=== PATIENT | female | born 1955 | race African-American/Black ===

== ENCOUNTER 2020-01-08 08:04 | Day surgery (SDC) | payer OTHER ==
[2020-01-05 17:40] VITALS: BMI 31.1
[2020-01-05 18:01] LABS: Hemoglobin 14.1 g/dL (12.0-16.0); Mean Corpuscular HGB CONC 33.6 g/dL (32.0-36.0); Mean Corpuscular Hemoglobin 30.9 pg (27.0-31.0); Mean Corpuscular Volume 91.8 fL (78.0-98.0); Mean Platelet Volume 9.1 fL (7.4-10.4); Platelet Count 243 thou/uL (130-400); RBC Distribution Width 12.4 % (11.5-14.5); Red Blood Cell (RBC) Count 4.57 mill/uL (4.20-5.40)
[2020-01-06 16:51] LABS: SARS-CoV-2 MS2 Positive; SARS-CoV-2 N Gene Negative; SARS-CoV-2 S Gene Negative; SARS-CoV-2 orf1ab Negative
--- NOTE | 2020-01-08 08:12 | HP ---
ANTICIPATED DATE OF SURGERY: She is scheduled for surgery on January 07. HISTORY OF PRESENT ILLNESS: Ms. Swift is a 64-year-old female, who has had a history of postmenopausal bleeding for the past year and a half. She was originally evaluated at [facility] with a hysteroscopy D and C on September 2018, which had benign findings. She had a recurrence of the bleeding in July 2019 and transvaginal ultrasound showed 8 mm endometrial lining with benign polyp biopsy. Pap smears were also normal with negative HPV testing. She had been planning on proceeding with definitive surgical therapy, but due to the COVID outbreak, this had been postponed and prolonged and she now presented to my office desiring definitive surgical therapy. She was seen in my office on November 14. Endometrial biopsy again was performed, which was benign. She denies any current bleeding. No family history of uterine or ovarian cancer. PAST MEDICAL HISTORY: Medical problems include hypertensive disorder, hyperlipidemia, diabetes, anxiety, hypothyroidism. CURRENT MEDICATIONS: 1. Lisinopril 40 mg tablet daily. 2. Pravastatin 20 mg tablet daily. 3. Toprol-XL 100 mg tablet daily. ALLERGIES: SHE HAS NO KNOWN DRUG ALLERGIES. SOCIAL HISTORY: Nonsmoker. No excessive alcohol use. FAMILY HISTORY: Significant for colon cancer in her mother and stomach cancer. PAST SURGICAL HISTORY: She has had an endoscopy with EGD, colonoscopy, thyroidectomy, and biopsy of the breast which was benign. OBSTETRICAL HISTORY: A G2, P1, A1 with one spontaneous vaginal delivery. PHYSICAL EXAMINATION: VITAL SIGNS: Her height is 5 feet 6 inches, blood pressure is 140/86, O2 saturation on room air is 99%, weight is 201 pounds, pulse is 72 and regular, BMI is 32.4, respiratory rate is 18. HEENT: Within normal limits. CHEST: Clear to auscultation. HEART: Regular rate and rhythm. S1 and S2 heart sounds. No murmurs, rubs, or gallops. ABDOMEN: Soft, nontender, nondistended with no palpable masses. PELVIC: There is no external genital lesion seen. She does have a left Bartholin cyst, stable for many years, is asymptomatic per the patient. Cervix has no visible lesions. Uterus is midline and it is nontender. No masses. Not enlarged. Bladder and urethra area have no lesions noted. Skin has no rash. ASSESSMENT: This is a 64-year-old female with recurrent postmenopausal bleeding episodes with benign diagnostic hysteroscopy and D and C in 09/2018 along with transvaginal ultrasound of 07/2019 showing 8 mm lining with endometrial biopsy showing inactive endometrium with a benign endometrial polyp. The patient is desiring definitive surgical therapy. PLAN: To proceed with a robotic TLH-BSO set for 01/08/2020. Risks and benefits of surgery have been discussed in detail. Job ID: [id number]
[2020-01-08] MEDS ORDERED: CeleCOXIB 100 MG CAP ONE (08:26)
[2020-01-08] MEDS ORDERED: Famotidine/PF 20 mg/2ml Vial ONE (08:26)
[2020-01-08] MEDS ORDERED: Gabapentin 300 MG CAP ONE (08:26)
[2020-01-08] MEDS ORDERED: Bupivacaine PF 0.5% 30 ML VIAL ONE (09:16)
[2020-01-08] MEDS ORDERED: Lidocaine 1% w/Epinephrine 1:100K 20 ML VIAL ONE (09:16)
[2020-01-08] MEDS ORDERED: Fentanyl 250 MCG/5 ML VIAL ONE (09:20)
[2020-01-08] MEDS ORDERED: Ondansetron HCl/PF 4 MG/2 ML Vial IVP PRN (11:18)
[2020-01-08] MEDS ORDERED: Promethazine HCl 25 MG/ML VIAL SLOW IVP PRN (11:18)
[2020-01-08] MEDS ORDERED: Promethazine HCl 25 MG/ML VIAL IM PRN ×2 (11:18→11:33)
[2020-01-08] MEDS ORDERED: SUGAMMADEX SODIUM 200 MG/2 ML VIAL ONE (11:30)
[2020-01-08] MEDS ORDERED: HYDROcodone/Acetaminophen 5/325 mg Tablet PO PRN ×2 (11:33)
[2020-01-08] MEDS ORDERED: diphenhydrAMINE 25 MG CAP PO PRN (11:33)
[2020-01-08] MEDS ORDERED: Zolpidem Tartrate 5 MG TAB PO PRN (11:33)
[2020-01-08] MEDS ORDERED: Bisacodyl 10 MG SUPP PR PRN (11:33)
[2020-01-08] MEDS ORDERED: Simethicone Chewable 80 MG TAB PO PRN (11:33)
[2020-01-08] MEDS ORDERED: Morphine 4 MG/ML VIAL SLOW IVP PRN (11:33)
[2020-01-08] MEDS ORDERED: Ondansetron PF 4 MG/2 ML Vial IVP PRN (11:33)
[2020-01-08] MEDS ORDERED: Lidocaine 1% PF 5 ML VIAL ONE (13:42)
[2020-01-08] MEDS ORDERED: EPHEDRINE 25 MG/5 ML SYRINGE ONE (13:42)
[2020-01-08] MEDS ORDERED: Glycopyrrolate 0.2 MG/ML 5 ML SYRINGE ONE (13:42)
[2020-01-08] MEDS ORDERED: Rocuronium Bromide 10 MG/ML (10ML VIAL) ONE (13:42)
[2020-01-08] MEDS ORDERED: PHENYLEPHRINE-NS 100 MCG/ML 10 ML SYRINGE ONE (13:42)
[2020-01-08] MEDS ORDERED: Ondansetron PF 4 MG/2 ML Vial ONE (13:42)
[2020-01-08] MEDS ORDERED: Dexamethasone 20 MG/5 ML VIAL ONE (13:42)
[2020-01-08] MEDS ORDERED: PROPOFOL 200 MG/20 ML VIAL ONE (13:42)
[2020-01-08] MEDS: Ketorolac Tromethamine 30 MG/ML VIAL IVP SCH ×2 (16:29→18:21)
[2020-01-08] MEDS: Sodium Chloride 0.9% 1,000 ML IV SCH ×2 (16:30→22:30)
[2020-01-08] MEDS ORDERED: Sodium Chloride 0.9% 10 ML ONE (18:02)
--- NOTE | 2020-01-08 19:30 | OP ---
DATE OF PROCEDURE: 01/08/2020 PREOPERATIVE DIAGNOSES: 1. A 64-year-old female with recurrent postmenopausal bleeding. 2. Previous diagnostic biopsy with endometrial polyps. 3. Desires definitive surgical therapy. POSTOPERATIVE DIAGNOSES: 1. A 64-year-old female with recurrent postmenopausal bleeding. 2. Previous diagnostic biopsy with endometrial polyps. 3. Desires definitive surgical therapy. PROCEDURE PERFORMED: Robotic total abdominal hysterectomy with bilateral salpingo-oophorectomy RIGGING WORKER SURGEON: Chasity Warren PA-C ANESTHESIA: General endotracheal. ESTIMATED BLOOD LOSS: 25 mL. ANTIBIOTICS: 2 g Ancef, on-call to OR. COMPLICATIONS: None. PATHOLOGY: Uterus, tubes, ovaries, and cervix. FINDINGS: 1. Normal-appearing bilateral postmenopausal tubes and ovaries. 2. Mildly enlarged boggy-appearing uterus approximately 6- to 8-week size. 3. Clear urine present in Moreno catheter postprocedure. 4. Bilateral ureteral peristalsis visualized postprocedure. DISPOSITION: Recovery room, stable. DESCRIPTION OF PROCEDURE: The patient previously received informed consent in regard to surgery. She was taken back to the operating room, where she received a general endotracheal anesthetic agent without complications. She was then placed in dorsal lithotomy position, prepped and draped in usual sterile fashion. At this time, a Moreno catheter was placed. A side-arm speculum was placed in vagina, and anterior lip of the cervix was grasped with single-tooth tenaculum. The uterus sounded to 8 cm. A size 8 cm VALENTINA uterine manipulator 4.0 cm cervical cup was placed. Tenaculum and speculum were removed. Attention was then turned to the abdomen, where perspective trocar sites were infiltrated with 0.5% Marcaine with epinephrine. A 12 mm infraumbilical incision was made, and Veress needle was entered to the peritoneal cavity. The patient's pressure noted to be less than 5 mm. Abdomen was insufflated with the patient's pressure of 15 approximately 4.5 L of carbon dioxide gas. A 12 mm trocar was then placed, and the laparoscope was placed through the trocar sleeve confirming proper entry. The patient was placed in Trendelenburg, and additional bilateral lower quadrant 8 mm trocars were placed along with the right upper quadrant 11 mm trocar. The robot was then docked. I broke scrub and then proceeded to carry out the procedure from the surgical console while my assistants remained at the bedside. The uterus elevated from the pelvis. The left fallopian tube was grasped by my pharmaceutical assistant. I coagulated the infundibulopelvic ligament on the left side hugging the right close to the ovary, and this was transected with monopolar scissors. Serial coagulation of the uterus hugging close to the broad ligament, and the uterus margin was coagulated and transected to the left round ligament was reached. It was coagulated and transected. The anterior leaf of the broad ligament was entered. The vesicouterine peritoneum was incised in a layering technique dropping the bladder safely past the cervical vaginal margin. The left uterine vessels were also skeletonized and then coagulated the internal cervical os region. This was repeated in likewise fashion on the right ovary, where the right tube was grasped. The right IP ligament was coagulated and transected. Serial coagulation transection of the broad ligament hugging close again to the uterus was carried out to the right round ligament was reached. It was coagulated and transected. The vesicouterine peritoneum was incised in layering technique dropping the bladder again safely past the cervical vaginal margin on the patient's right side. The uterine vessels were coagulated at the internal cervical os and transected. We then proceeded with anterior colpotomy starting from 12 to 3 and 12 to 9 o'clock position, completing from 6 to 9 and 6 to 3 o'clock positions. Intermittently bipolar fenestrated cautery was utilized to assure hemostasis during this process. The specimen was then delivered in the vaginal vault. My pharmaceutical assistant then switched out the monopolar scissor with a Grady needle trash collector truck driver. I ran the cuff line with bipolar cautery coagulating any areas of oozing at the vaginal cuff. Stratafix suture was then brought into the field by my pharmaceutical assistant, and then I closed the vaginal cuff in full-thickness closure starting the right angle toward the left angle and back toward the midline closing the vaginal cuff with good hemostasis. The excess suture with needle was then removed in the right upper quadrant pharmaceutical assistant port. The pelvis was irrigated and suctioned. All the pedicle sites were inspected and noted to be hemostatic. The bladder was draining clear urine, and the bladder was distended and noted to be watertight. Bilateral ureteral peristalsis was visualized. The course of the ureters was inferior and lateral to the operative field. The robot was then undocked. The trocar sites deep stitch of 0 Vicryl was placed in the fascial stitch of the umbilicus with good closure and the remaining trocar sites were closed with 4-0 Monocryl subcuticular and Dermabond. The vaginal cuff was inspected. Hemostasis was confirmed. Job ID: [id number]
[2020-01-08] MEDS ORDERED: Simvastatin 5 MG TAB PO SCH (21:00)
[2020-01-08] MEDS ORDERED: Metoprolol Tartrate 50 MG TAB PO SCH (21:00)
[2020-01-09] MEDS: Ketorolac Tromethamine 30 MG/ML VIAL IVP SCH (00:01)
[2020-01-09] MEDS ORDERED: Ibuprofen 600 MG TAB PO SCH (06:00)
[2020-01-09] MEDS ORDERED: Ibuprofen 800 MG TAB PO SCH (06:00)
[2020-01-09] MEDS: Sodium Chloride 0.9% 1,000 ML IV SCH (06:31)
[2020-01-09 06:43] LABS: Hemoglobin 11.4 g/dL (12.0-16.0); Mean Corpuscular HGB CONC 33.9 g/dL (32.0-36.0); Mean Corpuscular Hemoglobin 31.1 pg (27.0-31.0); Mean Corpuscular Volume 91.6 fL (78.0-98.0); Mean Platelet Volume 9.4 fL (7.4-10.4); Platelet Count 186 thou/uL (130-400); RBC Distribution Width 12.2 % (11.5-14.5); Red Blood Cell (RBC) Count 3.66 mill/uL (4.20-5.40); White Blood Cell (WBC) Count 8.5 thou/uL (4.8-10.8)
--- NOTE | 2020-01-09 08:46 | PRG ---
DATE OF SERVICE: 01/09/2020 SUBJECTIVE: The patient reports tolerating regular diet. Good pain control. No nausea or vomiting. She is due to void her bladder this morning. OBJECTIVE: VITAL SIGNS: Stable. Temperature is 98, pulse 62, respirations 16, blood pressure 109/55. Her urine output has been 1750 mL since surgery, approximately 12 hours ago. ABDOMEN: Soft, nondistended. Trocar sites were intact, hemostatic. Abdominal exam postop tenderness. EXTREMITIES: Lower extremities are nontender. ASSESSMENT: This is a 64-year-old female, postoperative day one from robotic total abdominal hysterectomy with bilateral salpingo-oophorectomy. The patient is doing well. Hemodynamically stable. Hematocrit this morning is 33.5%. PLAN: To advance activity and once the patient is able to void, will discharge home. Job ID: [id number]
[2020-01-09] MEDS ORDERED: Aspirin 81 mg Enteric Coated Tablet PO SCH (09:00)
[2020-01-09] MEDS ORDERED: Lisinopril 10 MG TAB PO SCH (09:00)
[2020-01-09 09:48] VITALS: BP 139/60; TEMP 97.9
== END 2020-01-09 11:40 | disposition home or self-care (01) ==
LOC: SDC 08:04 → 3SW 12:55 → SDC 01-09 11:40
PROVIDERS: ATTEND Obstetrics & Gynecology
PROC: 0UT24ZZ Resection of Bilateral Ovaries, Percutaneous Endoscopic Approach (ICD-10-PCS; principal; 2020-01-09)
PROC: 0UT74ZZ Resection of Bilateral Fallopian Tubes, Percutaneous Endoscopic Approach (ICD-10-PCS; principal; 2020-01-09)
PROC: 0UT94ZZ Resection of Uterus, Percutaneous Endoscopic Approach (ICD-10-PCS; principal; 2020-01-09)
DX: D27.0 Benign neoplasm of right ovary (principal); D27.1 Benign neoplasm of left ovary; N84.0 Polyp of corpus uteri; N95.0 Postmenopausal bleeding; I10 Essential (primary) hypertension; E11.9 Type 2 diabetes mellitus without complications; E78.5 Hyperlipidemia, unspecified; F41.9 Anxiety disorder, unspecified; E03.9 Hypothyroidism, unspecified; K21.9 Gastro-esophageal reflux disease without esophagitis; Z79.82 Long term (current) use of aspirin; Z79.899 Other long term (current) drug therapy
CPT/HCPCS: 36415; 85027; 86850; 86900; 86901; 87635; 88307; 88341; 88342; 88360; J0690; J1100; J1885; J2001; J2405; J2704; J3010; S0020; S0028; U0003

== ENCOUNTER 2021-12-15 00:26 | Emergency (ER) | payer OTHER ==
[2021-12-15 01:07] LABS: #Basophils 0.1 thou/uL (0.0-0.2); #Eosinphils 0.2 thou/uL (0.0-0.7); #Lymphocytes 1.8 thou/uL (1.20-3.40); #Monocytes 0.5 thou/uL (0.11-0.59); #Neutrophils 3.5 thou/uL (1.40-6.50); %Basophils 1.1 % (0.0-1.0); %Eosinophils 2.5 % (0.0-10.0); %Lymphocytes 30.2 % (21.0-51.0); %Monocytes 8.3 % (0.0-10.0); %Neutrophils 57.8 % (42.0-75.0); Hemoglobin 13.7 g/dL (12.0-16.0); Mean Corpuscular HGB CONC 33.7 g/dL (32.0-36.0); Mean Corpuscular Hemoglobin 31.6 pg (27.0-31.0); Mean Corpuscular Volume 93.7 fL (78.0-98.0); Mean Platelet Volume 8.9 fL (7.4-10.4); Platelet Count 220 thou/uL (130-400); RBC Distribution Width 12.4 % (11.5-14.5); Red Blood Cell (RBC) Count 4.33 mill/uL (4.20-5.40); White Blood Cell (WBC) Count 6.1 thou/uL (4.8-10.8)
[2021-12-15 01:26] LABS: ALT (SGPT) 52 U/L (8-55); AST (SGOT) 43 U/L (5-34); Albumin 4.3 g/dL (3.4-4.8); Alkaline Phosphatase 105 U/L (40-110); Anion Gap 13 mmol/L (10-20); BUN (Urea Nitrogen) 23 mg/dL (9.8-20.1); Bilirubin, Total 0.5 mg/dL (0.2-1.2); Calc. Creatinine Clearance 0 mL/min (70-130); Calcium 9.7 mg/dL (7.8-10.44); Carbon Dioxide 28 mmol/L (23-31); Chloride 103 mmol/L (98-107); Globulin 3.8 g/dL (2.4-3.5); Glucose 108 mg/dL (80-115); Lipase 60 U/L (8-78); Potassium 4.2 mmol/L (3.5-5.1); Protein, Total 8.1 g/dL (5.8-8.1); Sodium 140 mmol/L (136-145)
[2021-12-15] MEDS ORDERED: Ibuprofen 200 MG TAB ONE (03:06)
[2021-12-15] MEDS ORDERED: Acetaminophen 500 MG TAB ONE (03:06)
== END 2021-12-15 03:11 | disposition home or self-care (01) ==
LOC: ERS 00:26
DX: S29.012A Strain of muscle and tendon of back wall of thorax, initial encounter (principal); I10 Essential (primary) hypertension; E78.00 Pure hypercholesterolemia, unspecified; K21.9 Gastro-esophageal reflux disease without esophagitis; Z79.899 Other long term (current) drug therapy; X58.XXXA Exposure to other specified factors, initial encounter
CPT/HCPCS: 36415; 71045; 80053; 83690; 84484; 85025; 93005

== ENCOUNTER 2021-12-15 12:38 | Emergency (ER) | payer MEDICARE, OTHER ==
[~2021-12-15 12:38] MED LIST: Iopamidol-370 76% 500 ML 1 ML ONE
[2021-12-15 13:50] LABS: #Lymphocytes 0.8 thou/uL (1.20-3.40); #Monocytes 0.3 thou/uL (0.11-0.59); #Neutrophils 3.5 thou/uL (1.40-6.50); %Basophils 0.6 % (0.0-1.0); %Eosinophils 0.4 % (0.0-10.0); %Lymphocytes 16.8 % (21.0-51.0); %Monocytes 7.2 % (0.0-10.0); %Neutrophils 74.9 % (42.0-75.0); Hemoglobin 12.5 g/dL (12.0-16.0); Mean Corpuscular Hemoglobin 30.7 pg (27.0-31.0); Platelet Count 209 thou/uL (130-400); RBC Distribution Width 12.4 % (11.5-14.5); Red Blood Cell (RBC) Count 4.07 mill/uL (4.20-5.40); White Blood Cell (WBC) Count 4.7 thou/uL (4.8-10.8)
[2021-12-15 14:31] LABS: ALT (SGPT) 46 U/L (8-55); AST (SGOT) 32 U/L (5-34); Albumin 4.3 g/dL (3.4-4.8); Alkaline Phosphatase 101 U/L (40-110); Anion Gap 11 mmol/L (10-20); BUN (Urea Nitrogen) 21 mg/dL (9.8-20.1); Bilirubin, Total 0.6 mg/dL (0.2-1.2); Calc. Creatinine Clearance 0 mL/min (70-130); Calcium 9.5 mg/dL (7.8-10.44); Carbon Dioxide 28 mmol/L (23-31); Chloride 104 mmol/L (98-107); Globulin 2.8 g/dL (2.4-3.5); Glucose 167 mg/dL (80-115); Lipase 40 U/L (8-78); Potassium 4.2 mmol/L (3.5-5.1); Protein, Total 7.1 g/dL (5.8-8.1); Sodium 139 mmol/L (136-145)
[2021-12-15] MEDS ORDERED: Ondansetron PF 4 MG/2 ML Vial ONE (14:49)
[2021-12-15] MEDS ORDERED: Morphine 4 MG/ML VIAL ONE (14:49)
[2021-12-15 15:02] LABS: Bilirubin Negative (Negative); Blood, Urine Negative (Negative); Clarity Clear (Clear); Glucose, Urine (Dipstick) Normal (Negative); Ketone, Urine Negative (Negative); Leukocyte Negative Leu/uL (Negative); Nitrite Negative (Negative); Protein, Urine (Dipstick) 20 mg/dL (Neg-Trace); Specific Gravity, Urine 1.037 (1.002-1.036); Urobilinogen Normal mg/dL (Less than 2); pH, Urine 6.5 (5.0-9.0)
[2021-12-15] MEDS ORDERED: Ketorolac Tromethamine 30 MG/ML VIAL ONE (18:16)
== END 2021-12-15 16:27 | disposition home or self-care (01) ==
LOC: ERS 12:38
DX: M54.50 Low back pain, unspecified (principal); R10.13 Epigastric pain; I10 Essential (primary) hypertension; E78.00 Pure hypercholesterolemia, unspecified; K21.9 Gastro-esophageal reflux disease without esophagitis; Z79.899 Other long term (current) drug therapy
CPT/HCPCS: 36415; 71275; 74174; 81003; 83690; 83880; 93005; 96374; 96375; J1885; J2270; J2405; Q9967